=== PATIENT | female | born 1965 | race African-American/Black ===

== ENCOUNTER 2016-11-11 09:44 | Emergency (ER) | payer OTHER ==
[~2016-11-11] VITALS: Ht 170.2 cm; Wt 106.1 kg
[~2016-11-11 09:44] MED LIST: BACTRIM,SEPT1 TABLET PO; FLONASE16 G1 BOTH NARES; GABAPENTIN300 MG PO; GABAPENTIN600 MG PO; GUAIFENESIN600 MG PO; HYDROCHLOROTH12.5 M3 PO; HYDROCODON-ACE1 EAC9 PO; KEFLEX500 MG PO; LORTAB 5-325 M1 EACH PO; MORPHINE SULFAT15 M1 PO; NAPROSYN500 MG PO; NAPROXEN500 MG PO; NOHOMEMEDS; PERCOCET 5/31 TABLET PO; PREDNISONE20 MG PO; PROAIR HFA8.5 GM IH; SYMBICORT60 INHALAT IH; TESSALON PERLE100 MG PO; TIZANIDINE HCL4 MG PO
[2016-11-11 11:10] LABS: EOSINOPHIL COUNT 0.1 K/uL (0-0.3); HEMATOCRIT 39.8 % (36.0-46.0); IMMATURE GRANULOCYTE (%) 0.2 % (0.0-0.7); IMMATURE GRANULOCYTE COUNT 0.1 K/uL; LYMPHOCYTE COUNT 2.3 K/uL (1.0-2.8); MCH 29.2 PG (29.0-34.0); MCHC 32.9 G/DL (30.0-36.0); MCV 88.8 FL (83-99); MEAN PLAT.VOLUME 10.3 uM^3 (9.5-12.4); MONOCYTE (%) 5.4 % (3-12); MONOCYTE COUNT 0.3 K/uL (0-0.8); NEUTROPHIL (%) 49.9 % (45-76); NEUTROPHIL COUNT 2.7 K/uL (1.8-6.4); PLATELET COUNT 234 K/uL (156-360); RBC DIS.WIDTH-SD 40.9 % (39-53); RED BLOOD COUNT 4.48 M/uL (3.80-5.20); WHITE BLOOD COUNT 5.4 K/uL (4.1-10.2)
[2016-11-11 11:13] LABS: ADD MIUA? YES; BILIRUBIN NEGATIVE; BLOOD SMALL; COLOR YELLOW ((YELLOW)); GLUCOSE (STRIP) NEGATIVE; KETONES NEGATIVE; LEUKOCYTES LARGE; NITRITE NEGATIVE; PROTEIN (STRIP) NEGATIVE; SPECIFIC GRAVITY 1.028 (1.000-1.030); UROBILINOGEN 0.2 MG/DL (0.2-1.0)
[2016-11-11 11:20] LABS: CHLORIDE 106 mEq/L (99-109); POTASSIUM 3.9 mEq/L (3.7-5.4); SODIUM 140 mEq/L (136-147)
[2016-11-11 11:22] LABS: GLUCOSE 149 mg/dL (70-99)
[2016-11-11 11:22] LABS: BACTERIA RARE /HPF; EPITHELIAL CELLS 2+ /HPF; MUCUS 4+ /LPF; RED BLOOD CELLS 15-20 /HPF (0-5); WHITE BLOOD CELLS 40-50 /HPF (0-5)
[2016-11-11 11:23] LABS: ANION GAP 12 MEQ/L (2-14)
[2016-11-11 11:26] LABS: GFR ESTIMATE (CALCULATED) > 59 mL/min/; UREA NITROGEN (BUN) 16 mg/dL (9-23)
[2016-11-11] MEDS ORDERED: BACTRIM,SEPT1 TABLET PO (12:06)
[2016-11-11 12:36] VITALS: BP 152/85
[2016-11-13 12:16] LABS: CHLAMYDIA TRACHOMATIS NEGATIVE; NEISSERIA GONORRHOEAE NEGATIVE
== END 2016-11-11 12:37 | disposition home or self-care (01) ==
LOC: EME 09:44
PROVIDERS: Emergency Medicine
DX: N39.0 Urinary tract infection, site not specified (principal); I10 Essential (primary) hypertension
CPT/HCPCS: 80048; 81003; 85025; 87491; 87591; 99281; 99284

== ENCOUNTER 2017-06-13 13:20 | Emergency (ER) | payer OTHER ==
[~2017-06-13] VITALS: Ht 170.2 cm; Wt 104.1 kg
[2017-06-13 14:09] LABS: HEMATOCRIT 39.7 % (36.0-46.0); MCH 29.1 PG (29.0-34.0); MCHC 32.5 G/DL (30.0-36.0); MCV 89.6 FL (83-99); MEAN PLAT.VOLUME 9.9 uM^3 (9.5-12.4); PLATELET COUNT 264 K/uL (156-360); RED BLOOD COUNT 4.43 M/uL (3.80-5.20)
[2017-06-13 14:20] LABS: CHLORIDE 104 mEq/L (99-109); POTASSIUM 3.7 mEq/L (3.7-5.4); SODIUM 139 mEq/L (136-147)
[2017-06-13 14:22] LABS: GLUCOSE 119 mg/dL (70-99)
[2017-06-13 14:23] LABS: ANION GAP 13 MEQ/L (2-14)
[2017-06-13 14:25] LABS: GFR ESTIMATE (CALCULATED) > 59 mL/min/
[2017-06-13 14:26] LABS: UREA NITROGEN (BUN) 13 mg/dL (9-23)
[2017-06-13 15:06] LABS: MAGNESIUM 2.1 mg/dL (1.3-2.7)
[2017-06-13 15:19] LABS: TROP-I INTERPRETATION NEGATIVE; TROPONIN-I < 0.01 ng/mL (0.0-0.30)
[2017-06-13] MEDS ORDERED: BONINE25 MG PO (17:20)
[2017-06-13 17:41] VITALS: BP 153/88
== END 2017-06-13 17:42 | disposition home or self-care (01) ==
LOC: EME 13:20
DX: H81.10 Benign paroxysmal vertigo, unspecified ear (principal); I10 Essential (primary) hypertension; G89.29 Other chronic pain
CPT/HCPCS: 80048; 81003; 83735; 84484; 85027; 93005; 99281; 99284; J7030

== ENCOUNTER 2017-11-13 11:28 | Emergency (ER) | payer OTHER ==
[~2017-11-13] VITALS: Ht 170.2 cm; Wt 105.1 kg
[~2017-11-13 11:28] MED LIST changes: +BONINE25 MG PO
[2017-11-13 11:51] VITALS: BP 136/89
[2017-11-13] MEDS ORDERED: LIDODERM 5% P1 PATCH TD (13:53)
[2017-11-13] MEDS ORDERED: NAPROSYN500 MG PO (13:53)
[2017-11-13] MEDS ORDERED: FLEXERIL10 MG PO (13:53)
== END 2017-11-13 14:19 | disposition home or self-care (01) ==
LOC: EME 11:28
DX: S16.1XXA Strain of muscle, fascia and tendon at neck level, initial encounter (principal); M54.5 Low back pain; V44.6XXA Car passenger injured in collision with heavy transport vehicle or bus in traffic accident, initial encounter
CPT/HCPCS: 72040; 99281; 99284